=== PATIENT | male | born 2005 | race Caucasian/White ===

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

== ENCOUNTER 2024-04-02 19:24 | Emergency (ER) | payer OTHER ==
[~2024-04-02] VITALS: Ht 175.2 cm; Wt 70.3 kg
[2024-04-02] MEDS ORDERED: ADDERALL5 MG PO (19:37)
[2024-04-02] MEDS ORDERED: Tdap Vaccine 0.5 ML SYR (Adult Vaccine) IM ONE (19:45)
[2024-04-02] MEDS ORDERED: ACETAMINOPHEN 325 MG TAB PO ONE (20:50)
[2024-04-02] MEDS ORDERED: TRAMADOL HCL50 MG PO (22:59)
== END 2024-04-02 23:01 | disposition home or self-care (01) ==
LOC: ED 19:24
DX: S02.2XXA Fracture of nasal bones, initial encounter for closed fracture (principal); S01.21XA Laceration without foreign body of nose, initial encounter; Z79.899 Other long term (current) drug therapy; W21.03XA Struck by baseball, initial encounter; Y93.64 Activity, baseball; Y92.39 Other specified sports and athletic area as the place of occurrence of the external cause; Y99.8 Other external cause status

== ENCOUNTER 2024-04-06 23:29 | Emergency (ER) | payer OTHER ==
[~2024-04-06] VITALS: Ht 175.2 cm; Wt 65.8 kg
[~2024-04-06 23:29] MED LIST changes: +ADDERALL5 MG PO; +TRAMADOL HCL50 MG PO
[2024-04-07] VITALS (10 sets, daily range): BP systolic 125–139; BP diastolic 58–82
[2024-04-07] MEDS ORDERED: Ondansetron Hydrochloride 4 MG TAB SL ONE (00:25)
[2024-04-07] MEDS ORDERED: SODIUM CHLORIDE 0.9% 1,000 ML IV ONE ×5 (00:55→04:00)
[2024-04-07] MEDS ORDERED: Phenylephrine HydrochloridE 0.5% NASAL 15 ML BOTTLE NAS ONE (00:55)
[2024-04-07 01:16] LABS: BASO % 0.4 % (0.0-1.0); EOS # 0.2 10*3/uL (0.0-0.4); LYMPH # 1.8 10*3/uL (1.3-4.4); LYMPH % 18.7 % (27.0-41.0); MEAN CELL VOLUME 86.5 fl (80.0-94.0); MEAN CORPUSCULAR HGB 28.1 pg (27.0-31.0); MEAN CORPUSCULAR HGB CONC 32.5 g/dl (33.0-37.0); MEAN PLATELET VOLUME 8.9 fl (9.6-12.3); MONO # 0.5 10*3/uL (0.1-1.0); MONO % 5.1 % (3.0-9.0); NEUT # 7.2 10*3/uL (2.3-7.9); NEUT % 73.3 % (47.0-73.0); PLATELET COUNT AUTOMATED 226 10*3/uL (130-400); RED BLOOD COUNT 4.16 10*6/uL (4.50-5.90); RED CELL DISTRI WIDTH 12.3 % (0-14.5); WHITE BLOOD COUNT 9.8 10*3/uL (4.8-10.8)
[2024-04-07] MEDS ORDERED: Ondansetron Hydrochloride 4 MG/2 ML VIAL IV ONE (02:05)
[2024-04-07] MEDS ORDERED: SODIUM CHLORIDE 0.9% 500 ML IV ONE (03:45)
== END 2024-04-07 07:45 | disposition home or self-care (01) ==
LOC: ED 23:29
PROVIDERS: Internal Medicine
DX: R04.0 Epistaxis (principal); J45.909 Unspecified asthma, uncomplicated; F90.9 Attention-deficit hyperactivity disorder, unspecified type; Z98.890 Other specified postprocedural states

== ENCOUNTER 2024-04-11 03:24 | Emergency (ER) | payer OTHER ==
[~2024-04-11] VITALS: Ht 187.9 cm; Wt 74.8 kg
[2024-04-11] MEDS ORDERED: TRANEXAMIC ACID 1,000 MG/10 ML VIAL NAS ONE (03:40)
[2024-04-11 04:00] LABS: BASO % 0.4 % (0.0-1.0); EOS # 0.2 10*3/uL (0.0-0.4); HEMATOCRIT 30.6 % (42.0-52.0); LYMPH # 1.9 10*3/uL (1.3-4.4); LYMPH % 20.1 % (27.0-41.0); MEAN CELL VOLUME 87.2 fl (80.0-94.0); MEAN CORPUSCULAR HGB 28.5 pg (27.0-31.0); MEAN CORPUSCULAR HGB CONC 32.7 g/dl (33.0-37.0); MEAN PLATELET VOLUME 8.9 fl (9.6-12.3); MONO # 0.5 10*3/uL (0.1-1.0); MONO % 5.6 % (3.0-9.0); NEUT # 6.9 10*3/uL (2.3-7.9); NEUT % 71.5 % (47.0-73.0); PLATELET COUNT AUTOMATED 293 10*3/uL (130-400); RED BLOOD COUNT 3.51 10*6/uL (4.50-5.90); RED CELL DISTRI WIDTH 13.1 % (0-14.5); WHITE BLOOD COUNT 9.6 10*3/uL (4.8-10.8)
[2024-04-11 04:21] LABS: ALKALINE PHOSPHATASE 60 U/L (46-116); BUN 13 mg/dl (9-23); CHLORIDE 103 mmol/L (98-107); POTASSIUM 3.8 mmol/L (3.4-5.1); SGPT/ALT 9 U/L (5-49); TOTAL PROTEIN 6.9 gm/dL (6.0-8.0)
[2024-04-11] MEDS ORDERED: Gelatin Sponge 1 EACH SPON T ONE (04:35)
[2024-04-11 06:32] LABS: BASO % 0.3 % (0.0-1.0); EOS % 0.2 % (1.0-4.0); HEMATOCRIT 29.1 % (42.0-52.0); LYMPH # 1.1 10*3/uL (1.3-4.4); LYMPH % 9.5 % (27.0-41.0); MEAN CELL VOLUME 86.4 fl (80.0-94.0); MEAN CORPUSCULAR HGB 29.1 pg (27.0-31.0); MEAN CORPUSCULAR HGB CONC 33.7 g/dl (33.0-37.0); MEAN PLATELET VOLUME 8.8 fl (9.6-12.3); MONO # 0.6 10*3/uL (0.1-1.0); MONO % 4.9 % (3.0-9.0); NEUT % 84.8 % (47.0-73.0); PLATELET COUNT AUTOMATED 266 10*3/uL (130-400); RED BLOOD COUNT 3.37 10*6/uL (4.50-5.90); RED CELL DISTRI WIDTH 13.1 % (0-14.5); WHITE BLOOD COUNT 11.8 10*3/uL (4.8-10.8)
== END 2024-04-11 07:32 | disposition short-term general hospital (02) ==
LOC: ED 03:24
PROVIDERS: Emergency Medicine
DX: R04.0 Epistaxis (principal); J45.909 Unspecified asthma, uncomplicated; F90.9 Attention-deficit hyperactivity disorder, unspecified type; Z98.890 Other specified postprocedural states